=== PATIENT | female | born 2000 | race Two or more races ===

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

== ENCOUNTER → 2019-10-15 | Outpatient (CLI) | payer OTHER | LOC: OD 10:04 | PROVIDERS: ATTEND Nurse Practitioner Family | DX: J02.9 Acute pharyngitis, unspecified (principal) | CPT/HCPCS: 86308; 86664; 86665; 87070; 87880 ==